=== PATIENT | female | born 1945 | race Caucasian/White ===

== ENCOUNTER → 2017-05-27 | Outpatient (CLI) | payer OTHER, MEDICARE ==
--- NOTE | 2017-05-27 10:57 | DIAGNOSTIC IMAGING REPORT ---
RIGHT KNEE 4 OR MORE CLINICAL HISTORY: RIGHT KNEE PAIN Right pain COMPARISON: None. DISCUSSION: Considerable degenerative change medial to lesser extent lateral joint compartment of the right and to lesser extent left knee. Several degenerative subchondral cysts primarily of the medial tibial plateau and medial femoral condyle. Mild chondrocalcinosis. Several suprapatellar bursal synovial calcifications. Moderate degenerative change of the patellofemoral joint. There is no evidence for soft tissue swelling. IMPRESSION: Degenerative change primarily of the medial joint compartment and patellofemoral joint. Mild chondrocalcinosis. The above report was generated using voice recognition software. It may contain grammatical, syntax or spelling errors. Electronically signed by: Pablo Hill M.D. 05/27/2017 10:56 AM Dictated Date/Time: 05/27/2017 10:55 AM
== END | disposition home or self-care (01) ==
LOC: C.RDSM 13:10
PROVIDERS: ATTEND Physician Assistant
DX: R52 Pain, unspecified (principal)

== ENCOUNTER → 2017-07-08 | Outpatient (CLI) | payer OTHER, MEDICARE ==
--- NOTE | 2017-07-08 14:16 | DIAGNOSTIC IMAGING REPORT ---
LEFT ELBOW 3 VIEWS CLINICAL HISTORY: Left elbow pain of 10 days duration. No reported history of trauma. FINDINGS: 3 views of the left elbow are obtained. No prior studies are available for comparison at the time of dictation. The skeletal structures are osteopenic. No fracture is seen. The joint spaces are well-maintained. A small enthesophyte arises from the medial humeral epicondyle. There is no joint effusion. The overlying soft tissues are within normal limits. IMPRESSION: No acute bony abnormality is seen in the left elbow. Electronically signed by: Jose C Ontiveros M.D. 07/08/2017 2:15 PM Dictated Date/Time: 07/08/2017 2:14 PM
== END | disposition home or self-care (01) ==
LOC: C.RDSM 11:16
PROVIDERS: ATTEND Physician Assistant
DX: M25.522 Pain in left elbow (principal)

== ENCOUNTER → 2017-09-04 | Outpatient (CLI) | payer OTHER, MEDICARE ==
[2017-09-04 11:11] LABS: BASO % 0.6 %; BASO ABS # 0.05 K/uL (0-0.2); EOS % 1.7 %; EOS ABS # 0.14 K/uL (0-0.5); HEMATOCRIT 41.4 % (37-47); HEMOGLOBIN 13.8 g/dL (12.0-16.0); IG# 0.02 K/uL (0.00-0.02); LYMPH % 15.9 %; LYMPH ABS # 1.33 K/uL (1.2-3.4); MEAN CELL VOLUME 90.4 fL (80-100); MEAN CORPUSCULAR HEMOGLOBIN 30.1 pg (25-34); MEAN CORPUSCULAR HGB CONC 33.3 g/dl (32-36); MEAN PLATELET VOLUME 11.6 fL (7.4-10.4); MONO % 7.9 %; MONO ABS # 0.66 K/uL (0.11-0.59); NEUT % 73.7 %; NEUT ABS # 6.19 K/uL (1.4-6.5); PLATELET COUNT 246 K/uL (130-400); RED CELL DISTRIBUTION WIDTH CV 14.8 % (11.5-14.5); RED CELL DISTRIBUTION WIDTH SD 48.6 fL (36.4-46.3); WHITE BLOOD COUNT 8.39 K/uL (4.8-10.8)
[2017-09-04 11:28] LABS: ALBUMIN 3.7 gm/dl (3.4-5.0); ALT/SGPT 23 U/L (12-78); BLOOD UREA NITROGEN 20 mg/dl (7-18); CALCIUM 8.6 mg/dl (8.5-10.1); CARBON DIOXIDE 30 mmol/L (21-32); CHOLESTEROL 187 mg/dl (0-200); CREATININE 1.01 mg/dl (0.60-1.20); GLUCOSE 98 mg/dl (70-99); POTASSIUM 3.9 mmol/L (3.5-5.1); SODIUM 138 mmol/L (136-145)
[2017-09-04 11:29] LABS: T3 FREE 2.59 pg/ml (2.30-4.20)
[2017-09-04 11:30] LABS: FOLLICLE STIMULAT HORMONE 32.76 IU/L
[2017-09-04 11:34] LABS: ALKALINE PHOSPHATASE 85 U/L (45-117); AST/SGOT 10 U/L (15-37); LDL CHOLESTEROL CALCULATED 80 mg/dl; TOTAL PROTEIN 6.9 gm/dl (6.4-8.2)
== END | disposition home or self-care (01) ==
LOC: C.LABBC 08:45
PROVIDERS: ATTEND Internal Medicine
DX: R53.83 Other fatigue (principal); I10 Essential (primary) hypertension; E78.2 Mixed hyperlipidemia; D72.829 Elevated white blood cell count, unspecified; N95.9 Unspecified menopausal and perimenopausal disorder; D51.9 Vitamin B12 deficiency anemia, unspecified; E55.9 Vitamin D deficiency, unspecified

== ENCOUNTER 2019-08-01 06:30 | Inpatient (IN) ==
--- NOTE | 2019-07-25 09:28 | PAT Medication Instructions ---
Medication Instructions Date of Service July 25, 2019 Home Medications cholecalciferol (vitamin D3) [Vitamin D3] 1,000 unit PO DAILY magnesium oxide 500 mg PO DAILY melatonin 10 mg PO HS Vascepa 0 g PO DAILY ascorbic acid (vitamin C) [Vitamin C] 500 mg PO DAILY Progesterone 150 mg PO HS zolpidem [Ambien] 5 mg PO HS ASK your prescriber and surgeon Progesterone 150 mg PO HS STOP taking 2 weeks before surgery (or as soon as possible if surgery is within 2 weeks) Vascepa 0 g PO DAILY DO NOT take the morning of surgery cholecalciferol (vitamin D3) [Vitamin D3] 1,000 unit PO DAILY magnesium oxide 500 mg PO DAILY ascorbic acid (vitamin C) [Vitamin C] 500 mg PO DAILY Take evening before surgery melatonin 10 mg PO HS zolpidem [Ambien] 5 mg PO HS Other Notes If you have any questions please call us at [phone] or [phone] or [phone] or [phone]
--- NOTE | 2019-07-25 09:45 | Anesthesiology Consultation ---
Date of Service July 25, 2019 Assessment & Plan (1) Encounter for pre-operative examination: Chart Review Chart Review: Pending: Refer to Additional Notes / Consult section (pending preop testing (labs)) and Patient seen in Pre Admission Testing Teaching & Discussion Pre-Anesthesia Teaching/Discussion Notes: Instructed NPO after midnight before surgery,except medications with 15 cc of water. Medication instructions provided according to the PAT guidelines. History Surgery Operation Date: 08/01/19 10:25 Proposed Procedures p C6 Corpectomy, Spinal Cord Monitoring - Judd Howell DO Height/Weight Height: 5 ft 4 in Weight: 58.7 kg Allergies Allergy/AdvReac Type Severity Reaction Status Date / Time EYE ANTIBIOTIC Allergy Intermediate EYE REDNESS Uncoded 07/25/19 09:15 Medications Home Medications Medication Instructions Recorded Confirmed Last Taken cholecalciferol (vitamin D3) 1,000 unit PO DAILY 02/08/19 07/25/19 03/28/19 [Vitamin D3] magnesium oxide 500 mg PO DAILY 02/08/19 07/25/19 03/28/19 melatonin 10 mg PO HS 02/08/19 07/25/19 03/28/19 Vascepa 0 g PO DAILY 03/21/19 07/25/19 03/23/19 ascorbic acid (vitamin C) [Vitamin 500 mg PO DAILY 03/21/19 07/25/19 03/28/19 C] Progesterone 150 mg PO HS 07/25/19 07/25/19 Unknown zolpidem [Ambien] 5 mg PO HS 07/25/19 07/25/19 Unknown Past Medical History Medical History Arrhythmia PSVT, NSVT hx (follows with cardiology)- occasional palpitations controlled off beta chiquita (patient does have prescription for Toprol XL 25 mg daily but has not taken this as her palpitations have been controlled) Chronic back pain Degenerative disc disease MVP (mitral valve prolapse) Mild anterior/posterior mitral leaflet prolapse with mild MR Osteoarthritis Peripheral neuropathy left fingers/foot Pulmonary hypertension Mild pulmonary HTN (PASP 43mmhg) Exercise / Class Metabolic Activity II 4-5 Yardwork/Stairs/Walk up hill Past Family History Family History Father Family history of diabetes mellitus Mother Family hx of colon cancer Past Surgical History Surgical History H/O foot surgery LEFT TENDON REPAIR History of arthroscopy RT/LEFT KNEE History of bilateral tubal ligation History of colonoscopy History of endoscopic sinus surgery History of hysterectomy History of laminectomy LUMBAR AREA (L4-L5) History of nasal septoplasty Past Anesthesia History No Family Hx of Anesthesia Complications and Other "Slow to wake." No known hx reintubation. History of PONV No Hx of PONV and No Hx of Motion Sickness Social History Smoking Status: Never smoker Do You Dip or Chew Tobacco: No Hx Alcohol Use: Yes Alcohol type: wine alcohol intake frequency: 0-2 drinks per day (1 glass/night) Hx Substance Use: No substance use type: does not use Review of Systems Occasional palpitations. Patient denies chest pain, shortness of breath, dyspnea on exertion, cough, wheezing. Physical Exam Vital Signs Last Vital Signs Temp 36.5 C 07/25/19 09:33 Pulse 68 07/25/19 09:33 Resp 16 07/25/19 09:33 BP 129/76 07/25/19 09:33 Pulse Ox 96 07/25/19 09:33 PHYSICAL Full neck and c-spine range of motion. Full TMJ range of motion. TMD 3 finger breaths Mallampati Score 3 Dentition: intact, crowns several "all over" Lungs: clear throughout to auscultation Cardiac: regular rate and rhythm, no murmurs noted Spine: normal Carotid arteries: negative bruit Extremities: no edema Testing Electrocardiogram Date: 03/21/19 SR with occasional PVC's at 71bpm. 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 Chest X-Ray Date: 03/21/19 Findings: + NAD Stress Test Date: 06/30/18 Type: exercise Stress ECHO/EKG negative for ischemia. Occasional isolated PVC with exercise and ventricular couplet. No sustained supraventricular or ventricular arrhythmias. 10 METS. LVEf 60-64%. Mild anterior/posterior mitral leaflet prolapse with mild MR. Mild TR. Mild pulmonary HTN (PASP 43mmhg). Grade I DD.
[2019-07-25 12:04] LABS: Appearance Urine Clear (Clear); Bilirubin Urine Negative (Negative); Blood Urine Negative (Negative); Color Urine Yellow; Glucose Urine UA Negative (Negative); Ketones Urine Negative (Negative); Leukocyte Esterase Urine Negative (Negative); Nitrite Urine Negative (Negative); Protein Urine Negative (Negative); Specific Gravity Urine 1.013 (1.000-1.030); Urobilinogen Urine Negative (Negative)
[2019-07-25 12:09] LABS: Basophils # (auto) 0.06 K/uL (0-0.2); Basophils % (auto) 1.1 %; Calcium 9.1 mg/dl (8.5-10.1); Creatinine Clr Calc Pharmacy 46.4 ml/min; Eosinophils # (auto) 0.19 K/uL (0-0.5); Eosinophils % (auto) 3.5 %; Est GFR (Non-African American) 59.5; Hematocrit (blood only) 41.8 % (37-47); Hemoglobin 14.1 g/dL (12.0-16.0); Immature Granulocytes # (auto) 0.01 K/uL (0.00-0.02); Immature Granulocytes % (auto) 0.2 %; Lymphocytes # (auto) 0.89 K/uL (1.2-3.4); Lymphocytes % (auto) 16.5 %; Mean Corpuscular Hemoglobin 30.5 pg (25-34); Mean Corpuscular Hgb Conc 33.7 g/dL (32-36); Mean Corpuscular Volume 90.5 fL (80-100); Mean Platelet Volume 11.9 fL (7.4-10.4); Monocytes # (auto) 0.49 K/uL (0.11-0.59); Monocytes % (auto) 9.1 %; Neutrophils # (auto) 3.74 K/uL (1.4-6.5); Neutrophils % (auto) 69.6 %; Platelet Count 238 K/uL (130-400); Potassium 4.3 mmol/L (3.5-5.1); RDW Standard Deviation 46.3 fL (36.4-46.3); Red Blood Count 4.62 M/uL (4.2-5.4); White Blood Count 5.38 K/uL (4.8-10.8)
[~2019-08-01 06:30] MED LIST: ACETAMINOPHEN 500 MG TAB PO SCH; CEFAZOLIN 1000MG 1,000 MG/7.5 ML SYR IV SCH; CeleBREX 200 MG CAP PO SCH; GABAPENTIN 300 MG CAP PO SCH; LR 15ML/HR IV SCH
[2019-08-01] MEDS ORDERED: GLYCOPYRROLATE 0.2 MG/ML VIAL ONE (06:31)
[2019-08-01] MEDS ORDERED: DEXAMETHASONE SOD INJ 4 MG/ML VIAL ONE (06:31)
[2019-08-01] MEDS ORDERED: ROCURONIUM BROMIDE 10 MG/ML 5 ML VIAL ONE (06:31)
[2019-08-01] MEDS ORDERED: MIDAZOLAM HCL 1 MG/ML 2ML VIAL ONE (06:31)
[2019-08-01] MEDS ORDERED: PROPOFOL IV EMULSION 10 MG/ML 20 ML VIAL IV ONE (06:31)
[2019-08-01] MEDS ORDERED: ONDANSETRON INJ 2 MG/ML 2 ML VIAL ONE (06:31)
[2019-08-01] MEDS ORDERED: fentaNYL citrate 100 MCG/2 ML VIAL ONE ×4 (06:31→09:19)
[2019-08-01] MEDS ORDERED: HYDROmorphone INJ 2 MG/ML SYR/VIAL ONE ×2 (06:31)
[2019-08-01] MEDS ORDERED: NEOSTIGMINE METHYLSULFATE 1 MG/ML 10ML VIAL ONE (06:31)
[2019-08-01] MEDS ORDERED: LIDOCAINE HCL 2% 2 ML VIAL/AMP(20MG/ML) INFIL ONE (06:31)
[2019-08-01] MEDS ORDERED: PROPOFOL IV EMULSION 10 MG/ML 100 ML VIAL IV ONE (06:49)
[2019-08-01] MEDS ORDERED: BACITRACIN INJ 50,000 UNIT VIAL ONE (07:23)
--- NOTE | 2019-08-01 07:25 | History & Physical Bridge Note ---
Date of Service August 01, 2019 History & Physical Bridge Note I have examined the patient, reviewed the History & Physical and in the interval since the performance of the History & Physical I have noted the following changes of clinical significance: no changes noted
--- NOTE | 2019-08-01 07:26 | History & Physical Report ---
Date of Service August 01, 2019 Assessment & Plan (1) Cervical stenosis of spinal canal: Corpectomy and fusion C6 Present on Admission?: Yes History of Present Illness Chief Complaint: Neck and bilateral arm pain Primary Care Provider: Jocelyne Smith DO This is a 73-year-old female well-known to me that presents with worsening neck and bilateral arm symptoms secondary to spinal stenosis. Subsequently she is here for surgical intervention. Allergies Allergy/AdvReac Type Severity Reaction Status Date / Time EYE ANTIBIOTIC Allergy Intermediate EYE REDNESS Uncoded 07/25/19 09:15 Home Medications Home Medications Medication Instructions Recorded Confirmed Type cholecalciferol (vitamin D3) 1,000 unit PO DAILY 02/08/19 08/01/19 History [Vitamin D3] magnesium oxide 500 mg PO DAILY 02/08/19 08/01/19 History melatonin 10 mg PO HS 02/08/19 08/01/19 History Vascepa 0 g PO DAILY 03/21/19 08/01/19 History ascorbic acid (vitamin C) [Vitamin 500 mg PO DAILY 03/21/19 08/01/19 History C] Progesterone 150 mg PO HS 07/25/19 08/01/19 History zolpidem [Ambien] 5 mg PO HS 07/25/19 08/01/19 History Past Med/Surg History Family History Father Family history of diabetes mellitus Mother Family hx of colon cancer Social History Preferred Language: Macanese Communication Ability: Effective Paramedic Supervisor Required: No Beliefs That Will Affect Care: None Current Living Situation: Spouse Other Information That Helps Us Care for You: No Feels Safe at Home: Yes Safety Concerns: Feels Safe At This Time Smoking Status: Never smoker Do You Dip or Chew Tobacco: No ; Second Hand Exposure: No ; Tobacco Cessation Education Requested by Patient: No Hx Alcohol Use: Yes Alcohol type: wine Hx Substance Use: No Physical Exam Physical Exam: Patient is alert and oriented neurologically intact. Results & Data Vital Signs (Past 12 Hours) Vital Signs Temp Pulse Resp BP Pulse Ox 08/01/19 07:06 37 C 72 18 131/89 97
[2019-08-01] MEDS ORDERED: LARYING-O-JET KIT (LTA) ONE ×2 (08:15→08:55)
[2019-08-01] MEDS ORDERED: ePHEDrine sulfate 50 MG/ML SYR ONE (08:55)
[2019-08-01] MEDS ORDERED: PHENYLEPHRINE 100MCG/ML 5ML SYR ONE (08:55)
[2019-08-01] MEDS ORDERED: FLOSEAL HEMOSTATIC MATRIX 10ML TOP ONE (09:11)
--- NOTE | 2019-08-01 09:27 | Operative Report ---
Post Operative Report Pre & Post Diagnosis Operation Date: 08/01/19 07:45 Pre-Op Diagnosis: Cervical spinal stenosis with myeloradiculopathy Post-Op Diagnosis: Same Procedure Operation Date: 08/01/19 07:45 Actual Procedures 1 anterior cervical corpectomy with bilateral foraminotomies C6. #2 anterior cervical arthrodesis C5-C7. #3 placement of Spira titanium cage 19 mm in height C5-C7. #4 application of terrell plate and screws from C5-C7. #5 placement locally harvested morselized autograft combined with DBM and interbody cage. Surgeon Judd Howell, Inspector Cold Working Shyla Persaud Estimated Blood Loss 20 Findings Consistent with Post-Op Diagnosis Specimens None Indications This is a 73-year-old female who presents with significant myeloradiculopathy marked decline in status subsequently elected to go the above-mentioned procedure. Description of Procedure The patient was met with identified and informed consent obtained. Patient was then taken to the operative suite underwent intubation placed in supine position check stable to head Liang head greenskeeper. All bony prominences well-padded e yes inspected to ensure no external pressure placed upon but this point the anterior cervical spine was prepped and draped in a sterile fashion. The assistance of fluoroscopy identified the C6 vertebral body a transverse incision was placed along the right anterior aspect of the cervical spine overlying this region. Sharp dissection with the assistance of bipolar electrocautery was performed down to and exposing the anterior cervical spine from C5-C7. Self- retaining retractors placed. Then performed a complete discectomy of C5-6 out to the uncovertebral joints bilaterally followed by C6-7. [place] distracting pins were then placed in C5 and C7 to distract across the see 6 vertebral body. And then performed a complete corpectomy of C6 including removal of all posterior annular fibers longitudinal ligament bilateral foraminotomies performed. Endplates were then burred to subcortical bleeding bone and a 19 mm titanium spiral cage filled with locally harvested morselized autograft and DBM tapped in position. Distraction apparatus was removed. All anterior ossified's burred with smooth cortical surface. Terrell plate and screw was then applied with the assistance of fluoroscopy. The incision was then copiously irrigated explored to ensure no damage to surrounding structures remaining bleeding. A 10 round AMADEO drain inserted. The incision was then closed with 2 Vicryl in the fashion of 4 Monocryl for final skin closure. Steri-Strip sterile dressings placed. Patient will continue to PACU stable condition. Please note spinal cord monitoring was utilized that the procedure no changes noted. Lastly Shyla Persaud was present at the entire procedure involved in patient positioning complex portions of the surgery and final skin closure. I attest to the content of the Intraoperative Record and any orders documented therein. Any exceptions are noted below.
[2019-08-01] MEDS ORDERED: ONDANSETRON INJ 2 MG/ML 2 ML VIAL IV PRN ×2 (09:29→11:23)
[2019-08-01] MEDS ORDERED: NALOXONE HCL 0.4 MG/1 ML VIAL/CARP IV PRN ×2 (09:29→11:23)
[2019-08-01] MEDS ORDERED: FLUMAZENIL 0.1 MG/1 ML 10 ML VIAL IV PRN (09:29)
[2019-08-01] MEDS ORDERED: LABETALOL HCL IV 5 MG/ML 20ML IV PRN (09:29)
[2019-08-01] MEDS ORDERED: HYDROmorphone INJ 1 MG/ML SYRINGE IV PRN (09:29)
[2019-08-01] MEDS ORDERED: ATROPINE SULFATE 0.1 MG/ML 10ML SYR IV PRN (09:29)
[2019-08-01] MEDS ORDERED: ePHEDrine sulfate 50 MG/ML AMP IV PRN (09:29)
[2019-08-01] MEDS ORDERED: PROMETHAZINE HCL 12.5 MG in SODIUM CHLORIDE 0.9% 50 ML IV PRN ×2 (09:29→11:23)
--- NOTE | 2019-08-01 09:52 | Fluoroscopy Report ---
INTRAOPERATIVE RADIOGRAPHS CLINICAL HISTORY: C6 corpectomy with C5-C7 spinal fusion. Fluoroscopy time: 9 seconds. FINDINGS: 2 spot fluoroscopic views of the cervical spine are presented. An endotracheal tube is in p lace. There has been corpectomy of C6 with anterior fusion at C5-C7. The orthopedic hardware appears intact. A surgical drain is noted. IMPRESSION: Intraoperative images from C5 -C7 spinal fusion as above. Electronically signed by: Jose C Ontiveros M.D. 08/01/2019 9:51 AM
[2019-08-01] MEDS ORDERED: ESMOLOL HCL INJ 10 MG/ML 10ML VIAL IV ONE (09:57)
--- NOTE | 2019-08-01 10:53 | Anesthesiology Progress Note ---
Date of Service August 01, 2019 Anesthesia Post Procedure Vital Signs Vital Signs: Temp Pulse Pulse Resp BP BP Pulse Ox 08/01/19 10:45 69 15 131/69 97 08/01/19 10:35 36.2 C L 69 13 121/73 94 08/01/19 10:25 68 12 137/76 96 08/01/19 10:15 70 15 132/73 98 08/01/19 10:05 72 15 128/95 100 08/01/19 09:55 78 16 136/81 100 08/01/19 09:45 80 14 128/74 100 08/01/19 09:37 36.1 C L 86 10 L 112/60 96 08/01/19 07:06 37 C 72 18 131/89 97 Transfer of Care Handoff Completed per policy Notes Mental Status: alert / awake / arousable Patient Amnestic to Procedure: Yes Nausea / Vomiting: adequately controlled Pain: adequately controlled Airway Patency, RR, SpO2: stable & adequate BP & HR: stable & adequate Hydration State: stable & adequate Anesthetic Complications: no major complications apparent
[2019-08-01] MEDS ORDERED: ACETAMINOPHEN 1,000 MG/100 ML VIAL IV PRN (11:23)
[2019-08-01] MEDS ORDERED: DO NOT ADMINISTER PNEUMOCOCCAL VACCINE PRN (11:23)
[2019-08-01] MEDS ORDERED: SOD PHOSPHATE/SOD BIPHOSPHATE ENEMA 132 ML BTL PR PRN (11:23)
[2019-08-01] MEDS ORDERED: RACEPINEPHRINE 2.25% NEBU SOLN 0.5 ML VIAL INH PRN (11:23)
[2019-08-01] MEDS ORDERED: MAGNESIUM HYDROXIDE SUSP 30 ML UDC PO PRN (11:23)
[2019-08-01] MEDS ORDERED: TRAMADOL HCL 50 MG TABLET PO PRN (11:23)
[2019-08-01] MEDS ORDERED: LORazepam 0.5 MG TAB PO PRN (11:23)
[2019-08-01] MEDS ORDERED: DO NOT ADMINISTER FLU VACCINE PRN (11:23)
[2019-08-01] MEDS ORDERED: ONDANSETRON 4 MG TAB PO PRN (11:23)
[2019-08-01] MEDS ORDERED: ACETAMINOPHEN 500 MG TAB PO PRN (11:23)
[2019-08-01] MEDS ORDERED: ALUMINUM/MAGNESIUM SUSP 30 ML UDC PO PRN (11:23)
[2019-08-01] MEDS ORDERED: OXYCODONE HCL IR 5 MG TAB (IMMEDIATE RELEASE) PO PRN (11:23)
[2019-08-01] MEDS ORDERED: FAMOTIDINE 20 MG TAB PO PRN (11:23)
[2019-08-01] MEDS ORDERED: HYDROmorphone INJ 0.5 MG/0.5 ML SYR IV PRN (11:23)
[2019-08-01] MEDS ORDERED: METOCLOPRAMIDE HCL INJ 5 MG/ML 2 ML VIAL IV PRN (11:23)
[2019-08-01] MEDS ORDERED: DEXAMETHASONE SOD PHOSPHATE 8 MG in SYRINGE 0 ML IV PRN (11:23)
[2019-08-01] MEDS ORDERED: LORazepam 0.5 MG/1 ML VIAL IV PRN (11:23)
[2019-08-01] MEDS: LACTATED RINGER'S 1,000 ML IV SCH ×2 (12:47→23:59)
[2019-08-01] MEDS: CEFAZOLIN 1000MG 1,000 MG/7.5 ML SYR IV SCH ×2 (16:11→23:59)
[2019-08-01] MEDS ORDERED: Nursing to Pharmacy Communication ONE (16:52)
[2019-08-01] MEDS ORDERED: DOCUSATE SODIUM/SENNA 50/8.6MG TAB PO SCH (21:00)
[2019-08-01] MEDS ORDERED: PROGESTERONE 150 MG PO SCH (21:00)
[2019-08-01] MEDS ORDERED: ZOLPIDEM TARTRATE 5 MG TAB PO SCH (21:00)
[2019-08-01] MEDS ORDERED: MAGNESIUM OXIDE 400 MG TAB PO SCH (21:00)
[2019-08-02] MEDS ORDERED: COUGH DROP (SUGAR FREE) LOZ 24 LOZ/1 BOX BUCCAL ONE (02:24)
[2019-08-02] MEDS ORDERED: MAGNESIUM OXIDE 400 MG TAB PO SCH (09:00)
[2019-08-02] MEDS ORDERED: CHOLECALCIFEROL 1,000 UNITS TAB PO SCH (09:00)
[2019-08-02] MEDS ORDERED: ASCORBIC ACID 500 MG TAB PO SCH (09:00)
[2019-08-02] MEDS ORDERED: DEXAMETHASONE SOD PHOSPHATE 8 MG in SYRINGE 0 ML IV STA (09:18)
[2019-08-02] MEDS ORDERED: POLYETHYLENE (MIRALAX) 17 GM PACK PO SCH (09:28)
[2019-08-02 11:04] VITALS: BP 139/85; PULSE 68; TEMP 97.9
[2019-08-02 11:22] VITALS: O2SAT 97
--- NOTE | 2019-08-02 11:30 | Discharge Summary ---
Date of Service August 02, 2019 Admission HPI Per Admitting Provider This is a 73-year-old female well-known to me that presents with worsening neck and bilateral arm symptoms secondary to spinal stenosis. Subsequently she is here for surgical intervention. Principal Diagnosis Cervical spinal stenosis with myeloradiculopathy Discharge Data Allergies Allergy/AdvReac Type Severity Reaction Status Date / Time EYE ANTIBIOTIC Allergy Intermediate EYE REDNESS Uncoded 07/25/19 09:15 Procedures Performed Operation Date: 08/01/19 07:45 Actual Procedures p C6 Corpectomy and Fusion, Spinal Cord Monitoring(Not Applicable) - Judd Howell DO Ordered Studies 08/01/19 07:45 FL cervical 2-3V Routine FL fluoroscopy <1hr Routine Hospital Course (1) Cervical stenosis of spinal canal: Patient underwent anterior cervical corpectomy tolerated as well as taken to orthopedic for postoperative. Postop day 1 arm symptoms are improved. She is swallowing well. She is neurologically intact. Subsequently discharged home. Discharge orders instructions from the chart for further review. Total Time Total Time Spent Total Time Spent (In Minutes): 20 minutes Discharge Plan Discharge Items Patient Disposition: Home - Self-Care Reason For Visit: Other Spondylosis wtih Myelopathy, Cervical Region Discharge Diagnosis: cervical stenosis Activity: Per Instructions section Non-emergency contact: Primary Care Provider Call non-emergency contact if: you have any medication questions Follow-up/Referrals: Jocelyne Smith DO [Primary Care Provider] - Diet: Regular Addtl Attending Provider Instructions: ACTIVITY RECOMMENDATIONS: SELF CARE INSTRUCTIONS AFTER CERVICAL FUSIONS 1. No smoking. Smoking drastically decreases the chance of a solid fusion. 2. No bending, lifting more than 5 pounds, or twisting (roll like a log when turning in bed). 3. You may shower 3 days after surgery. Thoroughly dry wound. Do not soak in the tub. 4. Cervical collar: Must be worn at all times including sleeping. You may remove the brace only to bath, eat and if you are sitting in a recliner. 5. Please walk as much as you can for exercise. Gradually increase the distance that you walk as your endurance increases. SPECIAL CARE INSTRUCTIONS: VERY IMPORTANT TO READ AND REVIEW A. Do not take any anti-inflammatory medications (i.e. Indocin, Advil, Aspirin, Naprosyn, Aleve, Motrin, etc.) as these may inhibit the chance of a solid fusion. Tylenol is okay to take. B. Your surgical incision has been closed with a cosmetic suture under the skin that will dissolve in about 6 weeks. In 14 days, you can use a pair of clean scissors and cut the suture that is left outside of the skin at the ends of your incision. C. Complications are uncommon, but please contact us if you have any signs or symptoms of: 1. wound infection (fever higher than 102.5 degrees F, redness, separation of wound, drainage, or increasing pain from the incision) 2. blood clots in legs (pain, swelling, redness and warmth in legs) 3. urinary tract infection (fever higher than 102.5 degrees, burning upon urination or increased frequency of urination) 4. nerve problems (inability to walk on your toes or heels, numbness, loss of bowel or bladder control) 5. any other symptoms that concern you. D. Please call the office at if you have any concerns or qu estions about your operation or recovery. MANAGING PAIN AFTER SPINAL SURGERY 1. Narcotic medication is intended for short-term use and will be provided for surgical pain. Surgical pain usually lasts for a period of 4-6 weeks. Narcotic medication includes Percocet, Vicodin, Darvocet, Tylenol #3 or Lortab. 2. Longer-term pain is more appropriately treated with non-narcotic medication such as Tylenol ES. 3. Muscle spasm is not appropriately treated with narcotics. Muscle relaxers such as Soma, Flexeril or Skelaxin can be used along with Tylenol ES. 4. Remember that we all live with some "aches and pains". This is not unusual or uncommon after an injury or as we get older. 5. We will provide appropriate medication within the normal guidelines of their prescribed use. We will also be very cautious and aware of potential abuse and extended duration of patients' medication needs. 6. Please allow 2-3 days to process refills. Prescriptions will not be mailed but must be picked up at the office. FOLLOW UP VISIT: Keep your scheduled follow-up appointment. Any questions, please call the office at . Pending Studies at Discharge: No Stand-Alone Forms: My [facility], Opioid Pain Management Medications and DC Order Prescriptions: New tramadol 50 mg Tablet 50 mg PO Q4H PRN (Reason: Pain, Moderate) Qty: 30 RF: 0 oxycodone 5 mg Tablet 5 mg PO Q4H PRN (Reason: Pain, Severe) Qty: 30 RF: 0 Continued ascorbic acid (vitamin C) [Vitamin C] 500 mg Tablet 500 mg PO DAILY RF: 0 Vascepa 0.5 gram capsule PO DAILY RF: 0 magnesium oxide 500 mg Tablet 500 mg PO DAILY RF: 0 cholecalciferol (vitamin D3) [Vitamin D3] 1,000 unit Capsule 1,000 unit PO DAILY RF: 0 melatonin 10 mg Tablet 10 mg PO HS RF: 0 zolpidem [Ambien] 5 mg Tablet 5 mg PO HS RF: 0 Progesterone 150 mg PO HS RF: 0 Discharge Orders: Discharge Order (Routine); Ordered 08/02/19 Ordered By: Judd Ivey/Other Patient Handouts: Surgery Cervical Disk Recovery Admission Data Admit Date/Time: 08/01/19 09:30 Attending Provider: Judd Howell Admit Provider: Judd Howell Primary Care Provider: Jocelyne Smith Other Interventions: Discharge Summary Assessment (RN) Last Done: 08/02/19 09:48
[2019-08-03] MEDS ORDERED: bisacodyL 10 MG SUPP PR PRN (09:28)
== END 2019-08-02 11:49 | disposition home or self-care (01) | DRG 473 ==
LOC: ASU 06:30 → 3E 09:30